=== PATIENT | male | born 1980 | race Caucasian/White ===

== ENCOUNTER → 2020-10-03 10:02 | Outpatient (BNVA) | payer OTHER, SELFPAY | PROVIDERS: Visit Provider Internal Medicine Gastroenterology | DX: Z76.89 Persons encountering health services in other specified circumstances (principal) ==

== ENCOUNTER 2025-04-17 14:37 | Outpatient (AMB) | payer OTHER, SELFPAY ==
--- NOTE | 2025-04-17 14:45 | A.OFFVIS_ITS ---
Intake Visit Reasons: vasectomy consult Intake Note: New patient presents today for initial visit for vasectomy consult Urology Medication:None Blood Thinner:None Antibiotic Allergies:Sulfa Allergies Sulfa (Sulfonamide Antibiotics) (SULFA (SULFONAMIDE ANTIBIOTICS)) Allergy (Severe, Verified 04/17/25 15:07) HIVES Medication List - Last Reconciled 04/17/25 by NORMA Nagel- omeprazole 20 mg PO BID HPI Comments Details: Anthony Howard is a pleasant male patient. He presents to the office today for - vasectomy evaluation Vasectomy evaluation The patient presents for vasectomy consultation.? He is currently He has fathered 2 children, with a single partner The youngest child is 11 years old His partner is aware and permissive for a vasectomy Current form of control is hormones Current employment is [employer] employee ([employer]) The vasectomy may be complicated due to a history of no complicating issues. Patient education has been provided via AUA video, via printed information, risks of failure, recovery time, bruising and potential pain syndrome have been stressed Discussion today focused on the presence of vasectomy and the risks, benefits and alternatives that are available. Vasectomy as intended as a permanent form of control. Printed information and literature was provided to the patient. Overall there is a one in 2500 failure rate. This can occur at any time after vasectomy. Risks were discussed highlighting hematoma, spermatocele, epididymal congestion, development of sperm antibodies, and development of chronic pain estimated between 1-5%. The procedure was reviewed in detail. Anatomical diagrams of the male genitalia were used to explain the location of the vas deferens. The vas deferens will be transected, the proximal end will be cauterized, a metal clip would be applied to separate the 2 vas deferens ends. It was explained the procedure will be done in the office and takes approximately 10-15 minutes. Less common problems that arise with vasectomy include hematoma, bleeding, allergic reaction to anesthetic, epididymal infection, epididymal congestion, scrotal discomfort, spermatic leak, spermatic granuloma and the possibility of antisperm antibodies. He understands these risks and wishes to proceed. Consent was signed at the office today. He also understands that it takes 12 weeks for sperm to fully clear the system. He will need to provide a semen sample at 12 weeks and if this is not clear a 2nd sample at 16 weeks. Medical clearance to stop using protection will only be provided if he satisfies published criteria for sperm clearance. [facility] Surgical History History of esophagogastroduodenoscopy (EGD) Family History Father No problems noted. Mother Family history of uterine cancer Sister No problems noted. 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 Const All systems reviewed & are unremarkable except as noted in HPI and below Physical Exam Const General: cooperative, healthy appearing, comfortable, no acute distress, well developed, alert and awake Nutritional Appearance: overweight Orientation/consciousness: patient oriented x3 Limitations: no limitations HEENT Head: Yes normal to inspection, Yes normocephalic and Yes atraumatic Ears: hearing grossly normal bilaterally Eyes General: appearance normal, both eyes and all related structures Neck Neck: Yes normal visual inspection and Yes trachea midline Chest Chest palpation & inspection: normal inspection of the chest Resp Effort & Inspection: normal respiratory effort and able to speak in complete sentences Cardio Rate: regular rate GI Inspection: Yes normal to inspection General: Yes no CVA tenderness Back/Spine/Pelvis Back: no CVA tenderness Skin General skin exam: no rashes or lesions noted Neuro General: patient oriented x3 Extrem General: Yes normal to inspection Psych Appearance: grossly normal and well kempt Mental Status: mental status grossly normal Speech and movement: Normal speech and movement present and Clear speech present Affect: normal affect Attitude: cooperative Thought process: Normal thought process present Thought content: Normal thought content present Insight: Fair insight present (Psych) Judgement: Fair judgement present (Psych) Assessment & Plan Assessment & Plan (1) Vasectomy evaluation: Code(s): Z30.09 - Encounter for other general counseling and advice on contraception Category: Medical (2) Anxiety about health: Code(s): R45.89 - Other symptoms and signs involving emotional state Category: Medical Plan Vasectomy was discussed at length; risks and benefits All questions were answered Consent obtain We discussed semen analysis in office verses fellows kit Prescriptions provided; we discussed importance of bringing them to office day of procedure. Will schedule for in office vasectomy Follow-up per doctor's orders; or sooner with any issues, concerns, and or questions. Medications: New tramadol Bringing medication to office day of procedure 50 mg PO Q8H PRN 9 tabs 0RF pain 3 days N43.3 - Hydrocele, unspecified diazepam (Valium) Bringing medication to office day of procedure 2 mg PO DAILY 1 tab 0RF anxiety 1 day R45.89 - Other symptoms and signs involving emotional state Patient Instructions: The patient had an opportunity to ask questions regarding the treatment plan. All questions were answered. Physical exam, labs, and imaging were discussed and reviewed in detail. As well as risks, benefits, and discussion of treatment choices. No major barriers to understanding were identified. The patient expressed understanding and agreement with the above treatment plan. The patient was made aware they should contact our office by phone for worsening of their current condition, the appearance of new symptoms, or with any questions or concerns. Compliance is encouraged with any medications and follow up testing that is ordered. It is a privilege to be allowed the opportunity to participate in? your urological care.? Again, if you have any questions or concerns If you have any questions or concerns please do not hesitate to contact me. The office is [phone]. This note is constructed using voice recognition software. While every effort has been made to ensure accuracy police sergeant errors may have been included. Yours sincerely, TI Nagel Coding Level of Care Code New Pt Level 4 (76740) Diagnoses Vasectomy evaluation Z30.09 Anxiety about health R45.89
--- OUTSIDE RECORDS SUMMARY | 2025-04-17 15:50 | XMS_ITS | Clinical Summary ---
Author Organization [facility] Address [address] [place] [address] Phone Care Team Providers Care Show Host/Hostess Name Role Phone Kartik Singh MD Primary Care Provider [phone] Allergies Active Allergy Reactions Criticality Noted Date Comments Sulfa (Sulfonamide Antibiotics) Hives 04/27 Medications omeprazole OTC (PriLOSEC OTC) 20 mg EC tablet Take 1 tablet (20 mg total) by mouth. 12/20/2023 Active omeprazole (PriLOSEC) [address] capsule Take 1 capsule (20 mg total) by mouth 1 (one) time each day. Active Active Problems Problem Noted Date Diagnosed Date Class 1 obesity 07/07/2024 Hyperlipidemia 07/05/2024 Obstructive sleep apnea 10/08/2018 Overview (07/07/2024): [facility] Home Polysomnogram: Date 10/06/2018; AHI 25, Unclassified apneas 0; Obstructive apneas 10; Central apneas 3; Mixed apneas 0; hypopneas 148; average oxygen saturation 94% (lowest 78% without saturations <88% for 5% or more of study) - Obstructive Sleep Apnea - moderate; mostly hypopneas with some obstructive apneas; without sleep related hypoventilation by 2019 home polysomnogram. Hypertriglyceridemia 09/29/2018 Obesity 05/07/2010 Immunizations Name Administration Dates Next Due Influenza Quadravalent, MDCK , 0.5ml, preservative free (Flucelvax) 6mo and older 11/05/2022,09/29/2018 Influenza trivalent, 0.5mL, preservative free (Fluarix; FluLaval; Fluzone) ages 6mo and older (Afluria) 3 years and older 08/29/2021 Moderna SARS-CoV-2 COVID-19, mRNA, LNP-S, preservative free 08/29/2021,01/22/2021,12/25/2020 Td Tetanus diptheria (Tdvax) 7yo and older 11/05 Tdap Tetanus diptheria acell ular pertussis (Boostrix; Adacel) 7yo and older 05/07/2010 Surgical History Surgery Date Site/Laterality Comments UPPER GASTROINTESTINAL ENDOSCOPY PROCEDURE: UPPER GI ENDOSCOPY/EXAM; COMMENT: Patient reports having upper endoscopy with esophageal dilation x [address] Beach. FLEXIBLE SIGMOIDOSCOPY 01/17/10 PROCEDURE: [place] SIGMOIDOSCOPY FLX DX W/COLLJ SPEC BR/WA IF PFRMD; COMMENT: hemorrhoids Medical History Medical History Date Comments Esophageal stricture 12/07/2007 DX:Esophage al stricture; COMMENT: EGD with dilation with Dr. Beach. Asthma, exercise induced DX:Asth ma, exercise induced RACHAEL (obstructive sleep apnea) DX :RACHAEL (obstructive sleep apnea) Family History Medical History Relation Name Comments Hypertension Father No Known Problems Maternal Grandfather No Known Problems Maternal Grandmother Hypertension Mother Uterine cancer Mother COPD Paternal Grandfather COPD Paternal Grandmother Other: tobacco use Paternal Grandmother Thyroid disease Sister Relation Name Status Comments Father Alive impaired glucos e tolerance Maternal Grandfather Maternal Grandmother Alive Mother Alive Paternal Grandfather COPD Paternal Grandmother COPD Sister Alive Social History Tobacco Use Types Packs/Day Years Used Date Smoking Tobacco: Never Smokeless Tobacco: Never Alcohol Use Standard Drinks/Week Comments No 0 (1 standard drink = 0.6 oz pur e alcohol) Sex and Gender Information Value Date Recorded Sex Assigned at Not on file Legal Sex Male 11:16 PM EST Gender Identity Not on file Sexual Orientation Not on file Obstetrics History Last Filed Vital Signs Vital Sign Reading Time Taken Comments Blood Pressure 120/80 07/05/2024 9:13 AM EDT Pulse 79 07/05/2024 8:44 AM EDT Temperature - - Respiratory Rate - - Oxygen Saturation - - Inhaled Oxygen Concentration - - Weight 119 kg (262 lb) 07/05/2024 8:44 AM EDT Height 185.4 cm (6' 1 ) 07/05/2024 8:44 AM EDT Body Mass Index 34.57 07/05/2024 8:44 AM EDT Plan of Treatment Health Maintenance Due Date Last Done Comments Hepatitis B Vaccines (1 of 3 - 19+ 3-dose series) 02/16/1999 Colorectal Cancer Screening: Colonoscopy 08/30/2022 HIV Screening 08/30/2022 Hepatitis C Screening 08/30/2022 Social Influencers of Health Screening 08/30/2022 COVID-19 Vaccine ( - 2023-2 5 season) 2024 08/29/2021, 01/22/2021, 12/25/2020 Depression Screening 09/27/2024 Influenza Vaccine (#1) 2025 , 08/29/2021, 09/29/2018 Cholesterol Screening (Lipid Panel) 11/10/2027 11/10/2022 DTaP,Tdap,and Td Vaccines (3 - Td or Tdap) 11/05/2032 11/05/2022, 05/07/2010 HIB Vaccines Aged Out No longer eligi ble based on patient's age to complete this topic HPV Vaccines Aged Out No longer eligi ble based on patient's age to complete this topic Hepatitis A Vaccines Aged Out No long er eligible based on patient's age to complete this topic IPV Vaccines Aged Out No longer eligi ble based on patient's age to complete this topic MMR Vaccines Aged Out No longer eligi ble based on patient's age to complete this topic Meningococcal ACWY Vaccine Aged Out N o longer eligible based on patient's age to complete this topic Meningococcal B Vaccine Aged Out No l onger eligible based on patient's age to complete this topic Pneumococcal Vaccine: Pediatrics (0 to 5 Years) and At-Risk Patients (6 to 49 Years) Aged Out No longer eligible b ased on patient's age to complete this topic RSV Immunization Patients Under 20 months Aged Out No longer eligible b ased on patient's age to complete this topic Varicella Vaccines Aged Out No longer eligible based on patient's age to complete this topic Insurance [employer] Care Teams Show Host/Hostess Relationship Specialty Start Date End Date Kartik Singh MD [address] [place] [address] PCP - General 08/13/22
--- OUTSIDE RECORDS SUMMARY | 2025-04-17 15:51 | XMS_ITS | Patient Health Record ---
Author Organization [facility] Address [address] [place] [id number] Care Team Providers Care Nailing Machine Operator Automatic Name Role Phone Caleb Beach Jr Reason For Referral No Information Plan Of Treatment No Information
== END 2025-04-17 15:09 | disposition home or self-care (01) ==
PROVIDERS: Visit Provider Nurse Practitioner Family
DX: Z30.09 Encounter for other general counseling and advice on contraception (principal); R45.89 Other symptoms and signs involving emotional state
CPT/HCPCS: 99204